=== PATIENT | male | born 1975 | race Caucasian/White ===

== ENCOUNTER 2021-10-18 14:53 | Emergency (ER) | payer OTHER ==
[~2021-10-18 14:53] MED LIST: ASPIR 8181 MG PO; DICLOFENAC SODI25 MG PO; FISH OIL 1,0001 EAC4 PO; FISH OIL 1,0001 EACH PO; GLUCOPHAGE1000 MG PO; IMDUR ER TAB 3030 MG PO; ISOSORBIDE PO; JANUVIA50 MG PO; LIORESAL TAB 1010 MG PO; LISINOPRIL10 MG PO; METOPROLOL PO; METOPROLOL SUCC25 MG PO; RANITIDINE HCL150 MG PO; RELAFEN 750 MG750 MG PO; REQUIP1 MG PO; ZANTAC 150 MG150 MG PO; ZANTAC150 MG PO
== END 2021-10-18 18:20 | disposition home or self-care (01) ==
LOC: ER1 14:53
DX: S62.623B Displaced fracture of middle phalanx of left middle finger, initial encounter for open fracture (principal); E11.9 Type 2 diabetes mellitus without complications; I10 Essential (primary) hypertension; Z90.89 Acquired absence of other organs; Z88.0 Allergy status to penicillin; W31.89XA Contact with other specified machinery, initial encounter
CPT/HCPCS: 73130; 99283

== ENCOUNTER → 2021-11-29 | Outpatient (CLI) | payer OTHER | LOC: KOH-I 08:24 | DX: D69.6 Thrombocytopenia, unspecified (principal); K74.60 Unspecified cirrhosis of liver; R16.1 Splenomegaly, not elsewhere classified | CPT/HCPCS: 74150 ==

== ENCOUNTER → 2021-12-21 | Day surgery (SDC) | payer OTHER ==
[~2021-12-21] MED LIST changes: +CARVEDILOL6.25 MG PO; +GABAPENTIN400 MG PO; +HYDROCODONE-AC1 EAC1 PO; +ISOSORBIDE MONO60 MG PO; -ISOSORBIDE PO; +JANUVIA100 MG PO; +LANTUS SOL100 UNIT/1 SQ; +LASIX TAB 20 MG20 MG PO; +MAGNESIUM OXID400 M1 PO; +PROTONIX40 MG PO; +SIMVASTATIN20 MG PO; +TRAZODONE HCL50 MG PO; +VITAMIN D21250 MCG PO
== END | disposition home or self-care (01) ==
LOC: OR 06:07
DX: K25.4 Chronic or unspecified gastric ulcer with hemorrhage (principal); K31.89 Other diseases of stomach and duodenum; K74.60 Unspecified cirrhosis of liver; I85.11 Secondary esophageal varices with bleeding; I86.4 Gastric varices; E78.00 Pure hypercholesterolemia, unspecified; I10 Essential (primary) hypertension; E11.9 Type 2 diabetes mellitus without complications; G47.30 Sleep apnea, unspecified; I25.2 Old myocardial infarction; K64.2 Third degree hemorrhoids; K64.4 Residual hemorrhoidal skin tags; Z88.0 Allergy status to penicillin; F17.220 Nicotine dependence, chewing tobacco, uncomplicated; Z79.4 Long term (current) use of insulin; Z90.49 Acquired absence of other specified parts of digestive tract; K76.6 Portal hypertension; E66.01 Morbid (severe) obesity due to excess calories; Z68.41 Body mass index [BMI] 40.0-44.9, adult; K62.5 Hemorrhage of anus and rectum; Z20.822 Contact with and (suspected) exposure to COVID-19
CPT/HCPCS: 82962; J2704; J7040